=== PATIENT | male | born 1995 | race African-American/Black ===

== ENCOUNTER 2017-08-27 11:58 | Emergency (ER) | payer MEDICAID ==
[~2017-08-27] VITALS: Ht 175.3 cm; Wt 99.8 kg
[2017-08-27 12:16] VITALS: BP 149/91
[2017-08-27] MEDS ORDERED: LIDOCAINE 1% HCL (LOCAL ANESTH.) INJ 20ML MDV ONE (12:48)
== END 2017-08-27 13:25 | disposition home or self-care (01) ==
LOC: ER 11:58
DX: S01.81XA Laceration without foreign body of other part of head, initial encounter (principal); Z88.6 Allergy status to analgesic agent; W25.XXXA Contact with sharp glass, initial encounter; Y93.89 Activity, other specified; Y92.89 Other specified places as the place of occurrence of the external cause; Y99.8 Other external cause status
CPT/HCPCS: 12014; 99283; J2001

== ENCOUNTER 2017-09-02 21:47 | Emergency (ER) | payer MEDICAID ==
[~2017-09-02] VITALS: Ht 175.3 cm; Wt 99.8 kg
[2017-09-02 21:49] VITALS: BP 158/56
== END 2017-09-02 21:59 | disposition home or self-care (01) ==
LOC: ER 21:47
DX: S01.91XD Laceration without foreign body of unspecified part of head, subsequent encounter (principal); Z88.6 Allergy status to analgesic agent; Z48.02 Encounter for removal of sutures; X58.XXXD Exposure to other specified factors, subsequent encounter; Y93.89 Activity, other specified; Y99.8 Other external cause status; Y92.89 Other specified places as the place of occurrence of the external cause

== ENCOUNTER 2019-09-29 17:15 | Emergency (ER) | payer MEDICAID ==
[~2019-09-29] VITALS: Ht 172.7 cm; Wt 99.8 kg
[2019-09-29 17:29] VITALS: BP 101/77
== END 2019-09-29 22:28 | disposition home or self-care (01) ==
LOC: ER 17:15
DX: S33.5XXA Sprain of ligaments of lumbar spine, initial encounter (principal); S16.1XXA Strain of muscle, fascia and tendon at neck level, initial encounter; S46.912A Strain of unspecified muscle, fascia and tendon at shoulder and upper arm level, left arm, initial encounter; S46.911A Strain of unspecified muscle, fascia and tendon at shoulder and upper arm level, right arm, initial encounter; Z88.1 Allergy status to other antibiotic agents; Z88.8 Allergy status to other drugs, medicaments and biological substances; V49.49XA Driver injured in collision with other motor vehicles in traffic accident, initial encounter; Y93.89 Activity, other specified; Y92.89 Other specified places as the place of occurrence of the external cause; Y99.8 Other external cause status
CPT/HCPCS: 72040; 72100